=== PATIENT | male | born 1975 | race Caucasian/White ===

== ENCOUNTER 2020-12-12 12:26 | Inpatient (IN) | payer SELFPAY ==
[2020-12-12 13:18] VITALS: BP 135/92; PULSE 102; RESP 16; TEMP 37.1; O2SAT 99; BMI 23.6
[2020-12-12 13:25] VITALS: BMI 23.6
--- NOTE | 2020-12-12 14:48 | PC.NURSE ---
pts belongings are placed in the copy room next to the vertical flow room
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
[2020-12-12 15:37] LABS: Alanine Aminotransferase 47 U/L (0-41); Albumin Level 4.3 g/dL (3.5-5.2); Alkaline Phosphatase 94 IU/L (40-130); Anion Gap 18.9 (5-19); Aspartate Amino Transferase 102 U/L (0-40); Blood Urea Nitrogen 18 mg/dL (6-20); Calcium 9.2 mg/dL (8.5-10.5); Carbon Dioxide 21 mmol/L (22-29); Chloride 101 mmol/L (98-107); Creatinine Clr Calc Pharmacy 120.3238; Globulin 3.6 g/dL (1.3-4.6); Glomerular Filtration Rate 105.5 mL/min (90-130); Glucose 96 mg/dL (65-115); Osmolality Calculated 286 mOsm/kg (285-295); Potassium 3.9 mmol/L (3.5-5.1); Sodium 137 mmol/L (136-145); Total Bilirubin 0.8 mg/dL (0.15-1.2); Total Protein 7.9 g/dL (6.6-8.7)
[2020-12-12 15:38] LABS: Acetaminophen < 5.0 ug/mL (10-30); Salicylate < 0.3 mg/dL (3-10)
[2020-12-12 15:49] LABS: Alcohol Level < 10 mg/dL (0-10)
[2020-12-12 15:58] LABS: Basophils # 0.1 10^3/uL (0.0-0.1); Basophils % 0.5 %; Eosinophils # 0.3 10^3/uL (0.0-0.8); Eosinophils % 3.3 %; Hematocrit 44.5 % (42.0-52.0); Hemoglobin 15.8 g/dL (11.7-16.6); Lymphocytes # 2.3 10^3/uL (0.8-4.8); Lymphocytes % 24.7 %; Mean Corpuscular HGB Conc 35.5 g/dL (30.0-36.0); Mean Corpuscular Hemoglobin 32.6 pg (28.0-34.0); Mean Corpuscular Volume 91.8 fL (80-94); Mean Platelet Volume 9.9 fL (7.4-10.4); Monocytes # 1.2 10^3/uL (0.2-0.9); Neutrophils % 58.2 %; Nucleated Red Blood Cells % 0 %; Platelet Count 166 10^3/cmm (130-400); Red Blood Count 4.85 10^6/uL (4.1-5.3); Red Cell Distribution Width 12.2 % (12.1-15.1); White Blood Count 9.1 10^3/uL (4.0-10.0)
[2020-12-12 16:20] VITALS: BP 132/83; PULSE 98; RESP 17; TEMP 36.7; O2SAT 97
[2020-12-12 17:23] VITALS: BP 138/89; PULSE 98; RESP 18; O2SAT 99
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
[2020-12-12 20:16] VITALS: BP 121/72; PULSE 72; RESP 18; TEMP 36.3; O2SAT 98
[2020-12-13 06:00] VITALS: BP 120/71; PULSE 96; RESP 18; TEMP 36.8; O2SAT 96
[2020-12-13] MEDS: metformin 500 mg Tablet PO ×2 (06:31→16:35)
[2020-12-13] MEDS: acetaminophen 325 mg Tablet 650 MG PO (06:35)
[2020-12-13] MEDS: lisinopril 5 mg Tablet PO (08:18)
[2020-12-13 12:51] LABS: Urine Color Dark Yellow (Yellow); pH Urine 5 (5-7)
[2020-12-13 12:52] LABS: Add Urine Microscopic? YES; Bilirubin Urine 2+ (Negative); Blood Urine Neg (Negative); Glucose Urine UA Norm (Normal); Ketones Urine 1+ (Negative); Leukocyte Esterase Urine Negative (Negative); Nitrate Urine Negative (Negative); Protein Urine Neg (Negative); Specific Gravity, Urine 1.025 (1.005-1.030); Urine Appearance Hazy (CLEAR); Urobilinogen Urine 1 mg/dL (Negative)
[2020-12-13 12:53] LABS: Add Urine Culture? No; Bacteria Urine TRACE /hpf; Mucus Urine 2+ /hpf; WBC Urine RARE /hpf (0-5)
[2020-12-13 12:58] LABS: Amphetamines Screen Urine Positive (Negative); Barbiturates Screen Urine Negative (Negative); Benzodiazepines Screen Urine Negative (Negative); Cocaine Screen Urine Negative (Negative); Opiate Screen Urine Negative (Negative); PCP Screen Urine Negative (Negative); THC Screen Urine Positive (Negative)
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
[2020-12-13 13:35] VITALS: BP 119/73; PULSE 96; RESP 18; TEMP 36.8; O2SAT 96
[2020-12-13 22:00] VITALS: BP 118/82; PULSE 101; RESP 18; TEMP 36.7; O2SAT 97
[2020-12-13] MEDS: lamoTRIgine 25 mg Tablet PO (22:15)
[2020-12-14 06:00] VITALS: BP 118/79; PULSE 77; RESP 17; TEMP 36.7; O2SAT 98; BMI 23.6
[2020-12-14 06:31] LABS: Glucose Point of Care 136 mg/dL (70-110)
[2020-12-14] MEDS: metformin 500 mg Tablet PO ×2 (06:39→17:12)
[2020-12-14] MEDS: lisinopril 5 mg Tablet PO (08:34)
[2020-12-14] MEDS: lamoTRIgine 25 mg Tablet PO (08:36)
[2020-12-14 12:47] LABS: Glucose Point of Care 169 mg/dL (70-110)
[2020-12-14 14:00] VITALS: BP 100/62; PULSE 97; RESP 20; TEMP 36.8; O2SAT 99
--- NOTE | 2020-12-14 16:17 | PM.NPN ---
Subjective NPU Subjective: Interval history: Carl presents today reporting that he is feeling better. He reports that he is hopeful that he get some assistance in getting to [place] so that ultimately get back to [place]. He endorsed a plan to maybe stay in a long term there for a couple of days and then take a bus back home and take care of some affairs in the start to address his overall situation. He does have some scrapes then cuts on the skin that are getting a little boggy. We will regularly we discussed risk benefits and alternatives of getting some bacitracin. Mental Status Exam MSE Comments: This is a slender white male in hospital scrubs with adequate grooming and eye contact. No abnormal movements. Cooperative with exam in no acute distress. Speech was normal rate and volume. Mood described as a little better affect congruent. Thought process organized. Thought content: Patient denied suicidal or homicidal ideation, there are no delusions reported or noted, he denied any auditory visual hallucinations. Attention and concentration appeared intact and memory was mostly reliable but none were formally tested. He is alert and oriented x3. Insight and judgment limited, but improving impulse control was limited, but improving. Vitals/I&O/Wt Last Vital Signs Temp 98.7 F 12/14/20 21:47 Pulse 75 12/14/20 21:47 Resp 15 12/14/20 21:47 BP 113/71 12/14/20 21:47 Pulse Ox 98 12/14/20 21:47 Weight last 48 hrs Weight 72.575 kg Data NPU : 12/12/20 14:57 12/12/20 14:57 A&P Additional A&P Information (1) Bipolar disorder: (2) History of bipolar disorder: (3) Partner relational problem: (4) Cannabis abuse: (5) Methamphetamine abuse: Additional A&P Information This is a 45-year-old white male with a long history of addiction with current active addiction, psychosocial stressors including partner relational issues and current homelessness with history of mood dysregulation that was well treated with Lamictal presents open to restarting medication. 1. Continue current medication. 2. Continue every 15 minute checks for safety. 3. Encourage individual, group and milieu therapies. 4. Encourage sober living treatment after discharge at the highest level of care to which he is willing to commit. 5. Patient endorses a plan to reconnect with services back in [place] after discharge. Involuntary Hold Information 96 Hour Hold: 96 Hour Involuntary Admission: No Attestations NPU Medical Necessity Statement*: Inpatient hospitalization is medically necessary and the clinically appropriate intervention at this time. We will monitor medications and make changes as indicated. Likely length of stay 1-3 days. Coding Level of Care Code Acute Group Home Paraprofessional for Yasmin Foster
[2020-12-14] MEDS: nicotine 2 mg Gum BUCCAL (16:18)
[2020-12-14 20:43] LABS: Glucose Point of Care 160 mg/dL (70-110)
[2020-12-14 21:47] VITALS: BP 113/71; PULSE 75; RESP 15; TEMP 37.1; O2SAT 98
[2020-12-15 06:00] VITALS: BP 107/66; PULSE 67; RESP 15; TEMP 36.7; O2SAT 97
[2020-12-15 06:38] LABS: Glucose Point of Care 144 mg/dL (70-110)
[2020-12-15] MEDS: metformin 500 mg Tablet PO ×2 (06:56→18:55)
[2020-12-15] MEDS: lamoTRIgine 25 mg Tablet PO (08:12)
[2020-12-15] MEDS: acetaminophen 325 mg Tablet 650 MG PO (08:12)
[2020-12-15] MEDS: lisinopril 5 mg Tablet PO (08:12)
[2020-12-15] MEDS: nicotine 2 mg Gum BUCCAL (09:43)
[2020-12-15 14:00] VITALS: BP 121/75; PULSE 100; RESP 16; TEMP 36.7; O2SAT 98
--- NOTE | 2020-12-15 14:57 | P.PN_ITS ---
Subjective NPU Subjective: Interval history: Carl presents today reporting that he is doing okay outside of the medical issues secondary to his cuts and abrasions. He was agreeable to a hospitalist consult and we are waiting on results. We discussed following through with those recommendations and likely discharging in the morning. He reports he is optimistic moving forward if we follow through with our plan he gets to blood station he gets home that he can start fresh again. Mental Status Exam MSE Comments: This is a slender white male in hospital scrubs with adequate grooming and eye contact. No abnormal movements. Cooperative with exam in no acute distress. He does have a spot on his lower leg that is boggy and expressing fluid or exudate when pressed. Speech was normal rate and volume. Mood described as a little better affect congruent. Thought process organized. Thought content: Patient denied suicidal or homicidal ideation, there are no delusions reported or noted, he denied any auditory visual hallucinations. Attention and concentration appeared intact and memory was mostly reliable but none were formally tested. He is alert and oriented x3. Insight and judgment l imited, but improving impulse control was limited, but improving. Vitals/I&O/Wt Last Vital Signs Temp 98.0 F 12/15/20 14:00 Pulse 100 12/15/20 14:00 Resp 16 12/15/20 14:00 BP 121/75 12/15/20 14:00 Pulse Ox 98 12/15/20 14:00 Weight last 48 hrs Weight 72.575 kg Data NPU : 12/12/20 14:57 12/12/20 14:57 A&P Additional A&P Information (1) Bipolar disorder: (2) History of bipolar disorder: (3) Partner relational problem: (4) Cannabis abuse: (5) Methamphetamine abuse: Additional A&P Information This is a 45-year-old white male with a long history of addiction with current active addiction, psychosocial stressors including partner relational issues and current homelessness with history of mood dysregulation that was well treated with Lamictal presents open to restarting medication. 1. Continue current medication. 2. Continue every 15 minute checks for safety. 3. Encourage individual, group and milieu therapies. 4. Encourage sober living treatment after discharge at the highest level of care to which he is willing to commit. 5. Patient endorses a plan to reconnect with services back in [place] after discharge. 6. We will await findings and recommendations from hospitalist consult to inform discharge plan. Involuntary Hold Information 96 Hour Hold: 96 Hour Involuntary Admission: No Attestations NPU Medical Necessity Statement*: Inpatient hospitalization is medically necessary and the clinically appropriate intervention at this time. We will monitor medications and make changes as indicated. Likely length of stay 1-3 days. Coding Level of Care Code Acute Senior Mechanical Estimator for Yasmin Foster
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
--- NOTE | 2020-12-15 17:02 | CTR_ITS ---
PROCEDURE INFORMATION: Exam: CT Right Lower Extremity Without Contrast; Lower Leg Exam date and time: 12/15/2020 5:02 PM Age: 45 years old Clinical indication: Cellulitis and pus involving the right lower leg. TECHNIQUE: Imaging protocol: CT of the Right lower extremity without contrast was performed. Exam focused on the lower leg. Radiation optimization: All CT scans at this facility use at least one of these dose optimization techniques: automated exposure control; mA and/or kV adjustment per patient size (includes targeted exams where dose is matched to clinical indication); or iterative reconstruction. COMPARISON: No relevant prior studies available. RADIATION DOSE METRICS: Total DLP (mGy-cm): 262.99 FINDINGS: Probable old screw tract through the distal fibula. There is subcutaneous edema along the anterior and lateral leg suspicious for cellulitis. No soft tissue gas is seen to suggest necrotizing fasciitis. No abscess is identified. There is no evidence of osteomyelitis. No fracture, dislocation or subluxation. No periosteal reaction or supsicious bone lesion. Tendinosis of the peroneus longus tendon. CT/CT lower leg RT w con [id number] IMPRESSION: 1. Subcutaneous edema along the anterior and lateral leg suspicious for cellulitis. No soft tissue gas is seen to suggest necrotizing fasciitis. No abscess is identified. There is no evidence of osteomyelitis. 2. Tendinosis of the peroneus longus tendon. Radiation Dose CTDIVOL = (mGy): DLP = 262.99 (mGy-cm)
[2020-12-15 17:05] LABS: Glucose Point of Care 157 mg/dL (70-110)
[2020-12-15] MEDS: doxycycline 100 mg Tablet PO (18:54)
[2020-12-15] MEDS: neomycin-poly-bacitracin oint 28 gm 1 APPLIC TOPICAL (18:55)
[2020-12-15] MEDS: iohexol 300 mg/mL 100 mL Btl IV (19:44)
--- NOTE | 2020-12-15 20:07 | PC.NURSE ---
at 1930, pt transported to CT per SHANK BURNISHER and Security.
[2020-12-15 20:34] LABS: Glucose Point of Care 125 mg/dL (70-110)
[2020-12-15 20:40] VITALS: BP 106/64; PULSE 65; RESP 18; TEMP 37; O2SAT 97
--- NOTE | 2020-12-16 00:55 | PC.NURSE ---
pt came to desk stating he cannot sleep due to room mates loud snoring. that lazara snores like a f#*@ing [employer] train . pt was given cotton balls to use for ear plugs, but it was not a [id number] solution. pt asked staff if he could go sleep on the dayroom floor, and pt was advised staff would find a different solution. due to pt's possible discharge in the am, pt was temporarily moved to room 127.
[2020-12-16 05:58] VITALS: BP 131/65; PULSE 73; RESP 17; TEMP 36.5; O2SAT 98
[2020-12-16 06:51] LABS: Glucose Point of Care 142 mg/dL (70-110)
[2020-12-16] MEDS: doxycycline 100 mg Tablet PO (07:54)
[2020-12-16] MEDS: lamoTRIgine 25 mg Tablet PO (07:55)
[2020-12-16] MEDS: lisinopril 5 mg Tablet PO (07:55)
[2020-12-16 08:08] LABS: C Reactive Protein 2.9 mg/L (0.0-4.9)
[2020-12-16 08:17] LABS: Procalcitonin 0.77 ng/mL (0-0.5)
[2020-12-16 08:56] LABS: Estmated Average Glucose 123; Hemoglobin A1C 5.9 % (4.0-6.0)
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
[2020-12-16 11:23] VITALS: BP 131/65; PULSE 73; RESP 17; TEMP 36.5; O2SAT 98
--- NOTE | 2020-12-16 11:44 | PC.NURSE ---
REFUSED BLOOD SUGAR CHECK AT LUNCH TIME, PT STATED I'M BEING DISCHARGED TODAY ANYWAY
== END 2020-12-16 13:40 | disposition home or self-care (01) | DRG 885 ==
LOC: ER 16:20 → NP 16:34
PROVIDERS: Internal Medicine; Admitting Provider Psychiatry & Neurology Psychiatry; Emergency Provider Nurse Practitioner Family; Visit Provider Psychiatry & Neurology Psychiatry
DX: F31.9 Bipolar disorder, unspecified (principal); L51.1 Stevens-Johnson syndrome; L03.115 Cellulitis of right lower limb; F15.10 Other stimulant abuse, uncomplicated; F17.210 Nicotine dependence, cigarettes, uncomplicated; Z59.0 Homelessness; Z63.0 Problems in relationship with spouse or partner
CPT/HCPCS: 36415; 36416; 73701; 80053; 80306; 80307; 81001; 82962; 83036; 84145; 85025; 86140; 99285; Q9967